=== PATIENT | female | born 1930 | race Caucasian/White ===

== ENCOUNTER 2017-12-21 19:27 | Emergency (ER) | payer MEDICARE, OTHER ==
[~2017-12-21 19:27] MED LIST: ATENOLOL50 MG PO; CEPHALEXIN500 MG PO; FUROSEMIDE40 MG PO; WARFARIN SODIUM4 MG PO; WARFARIN SODIUM5 MG PO
== END 2017-12-21 20:16 | disposition left against medical advice (07) ==
LOC: ED 19:27
DX: R10.9 Unspecified abdominal pain (principal); R22.2 Localized swelling, mass and lump, trunk; Z79.899 Other long term (current) drug therapy; Z79.01 Long term (current) use of anticoagulants; Z95.2 Presence of prosthetic heart valve
CPT/HCPCS: 99283